=== PATIENT | female | born 1935 | race Caucasian/White ===

== ENCOUNTER 2016-08-02 13:27 | Emergency (ER) | payer MEDICARE, OTHER ==
[~2016-08-02] VITALS: Ht 160 cm; Wt 77.0 kg
[~2016-08-02 13:27] MED LIST: LEVO125T PO
[2016-08-02 13:29] VITALS: BP 124/88
[2016-08-02] MEDS ORDERED: IBUPROFEN 200 MG TABLET ONE (14:47)
[2016-08-02] MEDS ORDERED: IBUPROFEN 200 MG TABLET PO ONE (15:00)
== END 2016-08-02 16:22 | disposition home or self-care (01) ==
LOC: ED 16:16
DX: M71.21 Synovial cyst of popliteal space [Baker], right knee (principal); I10 Essential (primary) hypertension; E03.9 Hypothyroidism, unspecified
CPT/HCPCS: 99284

== ENCOUNTER 2016-12-10 12:49 | Inpatient (IN) | payer MEDICARE, OTHER ==
[~2016-12-10] VITALS: Ht 160 cm; Wt 87.6 kg
[~2016-12-10 12:49] MED LIST changes: +EPINEPHRINE 1 MG/ML, 1ML ONE; +KETOROLAC 60 MG/2 ML ONE; +ROPIvacaine/PF 0.2%, 20 ML ONE; +SODIUM CHLORIDE 0.9% 50 ML ONE; +TRANEXAMIC ACID 100 MG/ML, 10ML ONE
[2016-12-10] MEDS ORDERED: OxyconTIN ER 10 MG TAB.ER PO ONE (14:00)
[2016-12-10] MEDS ORDERED: GABAPENTIN 300 MG CAPSULE PO ONE (14:00)
[2016-12-10] MEDS ORDERED: VANCOMYCIN PER PHARMACY MC ONE (14:00)
[2016-12-10] MEDS ORDERED: ACETAMINOPHEN 500 MG TABLET PO ONE (14:00)
[2016-12-10 14:13] VITALS: BP 138/94
[2016-12-10] MEDS ORDERED: VANCOMYCIN 1,300 MG in SODIUM CHLORIDE 0.9% 250 ML IV ONE (14:30)
[2016-12-10] MEDS ORDERED: TAMSULOSIN 0.4 MG CAP.ER.24H PO ONE (15:00)
[2016-12-10] MEDS ORDERED: ONDANSETRON 2MG/ML, 2ML IV PRN (15:00)
[2016-12-10] MEDS ORDERED: DIAZEPAM 5 MG TABLET PO PRN (15:00)
[2016-12-10] MEDS ORDERED: BISACODYL 10 MG SUPP PR PRN (15:00)
[2016-12-10] MEDS ORDERED: MAGNESIUM HYDROXIDE 8%, 30ML UDC PO PRN (15:00)
[2016-12-10] MEDS ORDERED: ONDANSETRON 4 MG TABLET PO PRN (15:00)
[2016-12-10] MEDS ORDERED: HYDROmorphone 1 MG/ML, 1ML IV PRN (15:00)
[2016-12-10] MEDS: CEFAZOLIN PMX 1GM/50ML 50 ML IVPB SCH (15:00)
[2016-12-10] MEDS ORDERED: ALUMINUM/MAG/SIMETHICONE 30 ML UDC PO PRN (15:00)
[2016-12-10] MEDS ORDERED: SCOPOLAMINE PATCH, 1.5MG PATCH.TD72 TD SCH (15:00)
[2016-12-10] MEDS ORDERED: SENNA/DOCUSATE TABLET PO PRN (15:00)
[2016-12-10] MEDS ORDERED: LACTATED RINGERS 1,000 ML IV SCH (15:11)
[2016-12-10] MEDS ORDERED: FENTANYL PF 100 MCG/2ML ONE (16:16)
[2016-12-10] MEDS ORDERED: MIDAZOLAM 1 MG/ML, 2ML ONE (16:16)
[2016-12-10] MEDS ORDERED: ROPIvacaine/PF 0.5%, 30 ML ONE (16:51)
[2016-12-10] MEDS ORDERED: ONDANSETRON 2MG/ML, 2ML ONE (17:26)
[2016-12-10] MEDS ORDERED: PROPOFOL 10 MG/ML, 20ML ONE (17:26)
[2016-12-10] MEDS ORDERED: CEFAZOLIN 1,000 MG ONE (17:26)
[2016-12-10] MEDS ORDERED: DEXAMETHASONE 4 MG/ML, 1ML ONE (17:26)
[2016-12-10] MEDS ORDERED: EPHEDRINE 50 MG/ML, 1ML IVPush PRN (18:30)
[2016-12-10] MEDS ORDERED: ALBUTEROL SULFATE 2.5 MG/3 ML NPPB PRN (18:30)
[2016-12-10] MEDS ORDERED: PROMETHAZINE 25 MG/ML, 1ML IV PRN (18:30)
[2016-12-10] MEDS ORDERED: OXYcodone 5 MG/5 ML ORAL.SOL UDC PO PRN (18:30)
[2016-12-10] MEDS ORDERED: MIDAZOLAM 1 MG/ML, 2ML IV PRN (18:30)
[2016-12-10] MEDS ORDERED: ONDANSETRON 2MG/ML, 2ML IVPush PRN (18:30)
[2016-12-10] MEDS ORDERED: METOPROLOL 1 MG/ML, 5ML IV PRN (18:30)
[2016-12-10] MEDS ORDERED: MEPERIDINE/PF 25MG/0.5ML IVPush PRN (18:30)
[2016-12-10] MEDS ORDERED: hydrALAzine 20 MG/ML, 1ML IV PRN (18:30)
[2016-12-10] MEDS ORDERED: DIAZEPAM 5 MG/ML, 2ML IVPush PRN (18:30)
[2016-12-10] MEDS ORDERED: LABETALOL 5MG/ML, 20ML IV PRN (18:30)
[2016-12-10] MEDS ORDERED: FENTANYL PF 100 MCG/2ML IV PRN (18:30)
[2016-12-10] MEDS ORDERED: HYDROcodone/APAP 7.5-325MG/15ML UDC PO PRN (18:30)
[2016-12-10] MEDS ORDERED: VANCOMYCIN PER PHARMACY MC PRN (19:30)
[2016-12-10] MEDS ORDERED: HYDROmorphone 1 MG/ML, 1ML ONE (19:41)
[2016-12-10] MEDS ORDERED: OXYcodone 5 MG/5 ML ORAL.SOL UDC ONE (19:41)
[2016-12-10] MEDS ORDERED: ACETAMINOPHEN 650 MG/20.3 ML UDC ONE (19:41)
[2016-12-10] MEDS: HYDROmorphone 1 MG/ML, 1ML IV PRN ×2 (19:45→20:00)
[2016-12-10] MEDS: ACETAMINOPHEN 650 MG/20.3 ML UDC PO PRN (19:46)
[2016-12-10] MEDS ORDERED: DOCUSATE 100 MG CAPSULE PO SCH (21:00)
[2016-12-10] MEDS ORDERED: PHARMACOKINETIC CONSULTATION MC ONE (21:30)
[2016-12-10] MEDS ORDERED: PHARMACOKINETIC MONITORING MC PRN (21:30)
[2016-12-10] MEDS: D5%-0.45NACL+KCL 20MEQ 1,000 ML IV SCH (21:47)
[2016-12-11 00:12] VITALS: BP 93/62
[2016-12-11] MEDS: CEFAZOLIN PMX 1GM/50ML 50 ML IVPB SCH (01:47)
[2016-12-11 04:10] VITALS: BP 121/70
[2016-12-11 05:18] LABS: HEMOGLOBIN 10.8 g/dL (11.7-16.4)
[2016-12-11 05:26] LABS: BLOOD UREA NITROGEN 21 mg/dL (7-18)
[2016-12-11] MEDS: OXYcodone IR 5MG TABLET PO PRN ×2 (05:46→18:47)
[2016-12-11] MEDS: LEVOTHYROXINE 125 MCG TABLET PO SCH (05:46)
[2016-12-11] MEDS ORDERED: DEXAMETHASONE 4 MG/ML, 1ML IVPush SCH (06:00)
[2016-12-11 08:04] VITALS: BP 119/82
[2016-12-11] MEDS: DOCUSATE 100 MG CAPSULE PO SCH ×2 (09:02→20:28)
[2016-12-11] MEDS: D5%-0.45NACL+KCL 20MEQ 1,000 ML IV SCH ×2 (09:02→18:30)
[2016-12-11] MEDS ORDERED: OXYC5CAP2 PO (09:33)
[2016-12-11] MEDS ORDERED: DIAZ5TAB PO (09:33)
[2016-12-11] MEDS ORDERED: CELE200C PO (09:34)
[2016-12-11] MEDS ORDERED: ASPI-621 PO (09:34)
[2016-12-11] MEDS ORDERED: ONDA4TAB10 PO (09:35)
[2016-12-11] MEDS ORDERED: DOCU-131 PO (09:36)
[2016-12-11] MEDS ORDERED: TRAM50TA2 PO (09:36)
[2016-12-11] MEDS ORDERED: CEFAZOLIN PMX 1GM/50ML 50 ML IV ONE (10:00)
[2016-12-11 12:41] VITALS: BP 114/72
[2016-12-11] MEDS ORDERED: VANCOMYCIN 1,300 MG in SODIUM CHLORIDE 0.9% 250 ML IV SCH (15:00)
[2016-12-11] MEDS: KETOROLAC 30 MG/1 ML IV SCH ×2 (16:27→23:23)
[2016-12-11] MEDS ORDERED: ASPIRIN 325 MG TABLET EC PO SCH (18:00)
[2016-12-11 20:16] VITALS: BP 98/60
[2016-12-12] MEDS: D5%-0.45NACL+KCL 20MEQ 1,000 ML IV SCH ×2 (02:02→14:13)
[2016-12-12] MEDS: ACETAMINOPHEN 650 MG/20.3 ML UDC PO PRN ×2 (02:02→10:48)
[2016-12-12 04:06] VITALS: BP 108/73
[2016-12-12] MEDS ORDERED: ASPIRIN 81 MG TABLET EC PO SCH (06:00)
[2016-12-12 06:03] LABS: HEMATOCRIT 27.8 % (34.6-47.8); HEMOGLOBIN 9.4 g/dL (11.7-16.4)
[2016-12-12] MEDS: ASPIRIN 81 MG TABLET EC PO SCH ×2 (06:28→16:17)
[2016-12-12] MEDS: LEVOTHYROXINE 125 MCG TABLET PO SCH (06:29)
[2016-12-12] MEDS: KETOROLAC 30 MG/1 ML IV SCH (06:29)
[2016-12-12 08:00] VITALS: BP 103/68
[2016-12-12] MEDS: OXYcodone IR 5MG TABLET PO PRN ×2 (08:56→16:15)
[2016-12-12] MEDS: DOCUSATE 100 MG CAPSULE PO SCH (08:57)
[2016-12-12] MEDS ORDERED: VANCOMYCIN 1,300 MG in SODIUM CHLORIDE 0.9% 250 ML IV SCH ×2 (12:00→15:00)
[2016-12-12 13:11] VITALS: BP 109/69
[2016-12-12 16:24] VITALS: BP 103/66
== END 2016-12-12 17:20 | disposition home or self-care (01) | DRG 470 ==
LOC: ORIP 13:31 → 4NOR 21:05 → DCLOUNGE 12-12 16:58
PROVIDERS: ADMIT Orthopaedic Surgery; ATTEND Orthopaedic Surgery
PROC: 0SRC0J9 Replacement of Right Knee Joint with Synthetic Substitute, Cemented, Open Approach (ICD-10-PCS; principal; 2016-12-10 15:30)
DX: M17.11 Unilateral primary osteoarthritis, right knee (principal)
CPT/HCPCS: 36415; 82565; 84520; 85014; 85018; C1713; J0171; J0690; J1100; J1170; J1885; J2250; J2405; J2704; J2795; J3010; J3370; C1776; J3480; J7050